=== PATIENT | male | born 1980 | race Caucasian/White ===

== ENCOUNTER 2018-09-30 20:13 | Emergency (ER) | payer BC ==
[2018-09-30 20:25] VITALS: BP 122/82; PULSE 78; TEMP 98.2; BMI 31.8
[2018-09-30] MEDS ORDERED: ACETAMINOPHEN 500 MG TABLET (FP) PO ONE (20:55)
--- NOTE | 2018-09-30 20:57 | PDOC ---
History of Present Illness - General Chief Complaint: Injury Stated Complaint: HIT TO BACK OF HEAD WITH A BASEBAL Time Seen by Provider: 09/30/18 20:17 History Source: Patient Exam Limitations: No Limitations - History of Present Illness Initial Comments: 09/30/18 20:58 This is a 37-year-old male who comes in complaining of a headache. Patient was playing baseball when a young teenager threw a ball accidentally hitting him in the back of the head. Patient did not pass out but said he was knocked to the ground briefly. Patient is complaining of a headache in the area where he was hit otherwise denies any nausea, neck pain, itchiness, difficulty concentration or any other symptoms. Allergies: as per nursing notes Past Medical History: none Social history: Lives with family. No smoking. No alcohol. No illicit drugs. Surgical history: None General: No fevers or chills, no weakness, no weight loss HEENT: No change in vision. No sore throat,. No ear pain CardioVascular: no chest discomfort. No shortness of breath Respiratory:No cough, or wheezing. Gastrointestinal: no nausea, vomiting, diarrhea or constipation, No rectal bleeding Genitourinary: No dysuria, hematuria, or frequency Musculoskeletal: No joint or muscle pain or swelling Neurologic: No headache, vertigo, dizziness or loss of consciousness Psychiatric: nor depression Skin: No rashes or easy bruising Endocrine: no increased thirst or abnormal weight change Allergic: no skin or latex allergy All other systems reviewed and normal GENERAL: The patient is awake, alert, and fully oriented, in no acute distress. HEAD: Normal with no signs of trauma. EYES: Pupils equal, round and reactive to light, extraocular movements intact, sclera anicteric, conjunctiva clear. Funduscopic exam is normal EXTREMITIES:atraumatic, Normal range of motion, no edema. PSYCH: Normal mood, normal affect. SKIN: Warm, Dry, normal turgor, no rashes or lesions noted. NEURO: Mental Status: The patient is alert and oriented to person, place, and time with normal speech. Memory is normal and thought process is intact. Cranial Nerves II - XII is intact. Reflexes: Biceps, brachioradialis, triceps, patellar, and Achilles are 2/4 bilaterally. No clonus. Plantar reflex is downward bilaterally. Sensation: Sensation is intact bilaterally to pain and light touch. Motor: Good muscle tone. Strength is 5/5 bilaterally at the deltoid, biceps, triceps, quadriceps, and hamstrings. Cerebellar: [id number] and [id number] test normal bilaterally. Balances with eyes closed (Romberg). Gait is steady with a normal base. Coordination is intact as measured by heel walk and toe walk. Assessment and plan: This is a 37-year-old male who was hit in the back of the head with a baseball. Patient has a headache but otherwise no neurological symptoms. Discussed with patient the pros and cons of the CAT scan and patient opted to not have a CAT scan as his symptoms are relatively mild. Patient discharged home with his his will check on him during the night a couple of times and patient knows what to return to the ED for. Past History - Past Medical History Allergies/Adverse Reactions: Allergies Allergy/AdvReac Type Severity Reaction Status Date / Time codeine Allergy Intermediate Nausea Verified 09/30/18 20:15 Home Medications: Ambulatory Orders NK [No Known Home Medication] 09/30/18 COPD: No Other medical history: DENIES - Suicide/Smoking/Psychosocial Hx Smoking History: Never smoked Information on smoking cessation initiated: No Hx Alcohol Use: Yes (SOCIAL) Drug/Substance Use Hx: No *Physical Exam - Vital Signs Last Vital Signs Temp Pulse Resp BP Pulse Ox 98.2 F 78 16 122/82 97 09/30/18 20:14 09/30/18 20:14 09/30/18 20:14 09/30/18 20:14 09/30/18 20:14 *DC/Admit/Observation/Transfer Diagnosis at time of Disposition: Mild concussion Qualifiers: Encounter type: initial encounter Loss of consciousness presence/duration: without LOC Qualified Code(s): S06.0X0A - Concussion without loss of consciousness, initial encounter - Discharge Dispostion Disposition: HOME Condition at time of disposition: Stable Decision to Admit order: No - Referrals - Patient Instructions Printed Discharge Instructions: DI for Concussion Additional Instructions: For the pain take Tylenol 1000 mg as often this 3-4 times a day if needed. Someone to check on you twice tonight during the night. You should be arousable to you normal level of arousability for that time of the night. If you have been vomiting, had a seizure, or you are unable to be aroused or there is a change in your mental status someone should call 911 go back to the nearest emergency department. Followup with your primary care doctor. Your symptoms are consistent with a mild concussion. With a mild concussion you need to rest your brain until the symptoms have resolved. Rest your brain involves not doing anything that causes you to engage thought processes such as going to work, working on the computer, watching TV, reading a book, or having intense conversations with someone. - Post Discharge Activity
[2018-09-30] MEDS ORDERED: ACETAMINOPHEN 500 MG TABLET (FP) ONE (20:58)
== END 2018-09-30 21:09 | disposition home or self-care (01) ==
LOC: FER 20:13
DX: S06.0X0A Concussion without loss of consciousness, initial encounter (principal); W21.03XA Struck by baseball, initial encounter; Y93.64 Activity, baseball; Y92.320 Baseball field as the place of occurrence of the external cause
CPT/HCPCS: 99282-25